=== PATIENT | male | born 1995 | race Caucasian/White ===

== ENCOUNTER 2018-01-31 08:46 | Emergency (ER) | payer OTHER ==
[2018-01-31 08:53] VITALS: BP 135/82; PULSE 85; RESP 18; TEMP 98.3
[2018-01-31] MEDS ORDERED: predniSONE 50 MG TAB PO STA (09:02)
[2018-01-31] MEDS ORDERED: AMOXICILLIN 500 MG CAP PO STA (09:03)
--- NOTE | 2018-01-31 09:05 | ED ---
General Adult HPI - General Chief complaint: ENT Stated complaint: dizziness, sore throat Time Seen by Provider: 01/31/18 08:48 Source: patient, RN notes reviewed Mode of arrival: ambulatory Limitations: no limitations - History of Present Illness Initial comments: This is a 22-year-old male presents emergency Department stating last night he had a mild headache he started his shift took a couple of aspirin and that resolved. Patient states shortly thereafter he started having a sore throat the throat is gotten considerably worse throughout the night. Patient states this morning he noticed he stated some anterior cervical lymphadenopathy. Patient denies any posterior lymphadenopathy. Patient denies any fever or chills. Patient states she did have an episode where he felt a little dizzy. Patient denies any dizziness now. Patient denies any palpitations. Patient denies chest pain patient difficulty breathing shortest breath per patient denies any ear pain. Patient denies any abdominal pain - Related Data Home Medications Medication Instructions Recorded Confirmed Ibuprofen [Advil] 400 mg PO Q8HR PRN 01/31/18 01/31/18 Previous Rx's Medication Instructions Recorded Amoxicillin 500 mg PO Q8H #30 capsule 01/31/18 predniSONE 40 mg PO DAILY #8 tab 01/31/18 Allergies Allergy/AdvReac Type Severity Reaction Status Date / Time No Known Allergies Allergy Verified 01/31/18 09:10 Review of Systems ROS Statement: Those systems with pertinent positive or pertinent negative responses have been documented in the HPI. ROS Other: All systems not noted in ROS Statement are negative. Past Medical History Past Medical History: No Reported History History of Any Multi-Drug Resistant Organisms: None Reported Past Surgical History: No Surgical Hx Reported Past Psychological History: ADD/ADHD Smoking Status: Current every day smoker Past Alcohol Use History: None Reported Past Drug Use History: None Reported General Exam - General Exam Comments Initial Comments: GENERAL: Patient is well-developed and well-nourished. Patient is nontoxic and well- hydrated and is in mild distress. ENT: Neck is soft and supple. Anterior cervical lymphadenopathy. Oropharynx is very erythematous. Moist mucous membranes. Neck has full range of motion without eliciting any pain. EYES: The sclera were anicteric and conjunctiva were pink and moist. Extraocular movements were intact and pupils were equal round and reactive to light. Eyelids were unremarkable. PULMONARY: Unlabored respirations. Good breath sounds bilaterally. No audible rales rhonchi or wheezing was noted. CARDIOVASCULAR: There is a regular rate and rhythm without any murmurs gallops or rubs. ABDOMEN: Soft and nontender with normal bowel sounds. No palpable organomegaly was noted. There is no palpable pulsatile mass. SKIN: Skin is clear with no lesions or rashes and otherwise unremarkable. NEUROLOGIC: Patient is alert and oriented x3. Cranial nerves II through XII are grossly intact. Motor and sensory are also intact. Normal speech, volume and content. Symmetrical smile. MUSCULOSKELETAL: Normal extremities with adequate strength and full range of motion. LYMPHATICS: Anterior cervical lymphadenopathy greater on the right than the left. PSYCHIATRIC: Normal psychiatric evaluation. Limitations: no limitations Course Vital Signs 01/31/18 08:50 Temperature 98.3 F Pulse Rate 85 Respiratory 18 Rate Blood Pressure 135/82 O2 Sat by Pulse 100 Oximetry Disposition Clinical Impression: Strep throat Disposition: HOME SELF-CARE Condition: Good Instructions: Strep Throat (ED) Prescriptions: Amoxicillin 500 mg PO Q8H #30 capsule predniSONE 40 mg PO DAILY #8 tab Is patient prescribed a controlled substance at d/c from ED?: No Referrals: None,Stated [Primary Care Provider] - 1-2 days Time of Disposition: 09:29
== END 2018-01-31 10:06 | disposition home or self-care (01) ==
LOC: EC 08:46
DX: J02.0 Streptococcal pharyngitis (principal); F17.200 Nicotine dependence, unspecified, uncomplicated
CPT/HCPCS: 99283; J7512

== ENCOUNTER 2024-01-11 19:41 | Emergency (ER) | payer OTHER ==
[2024-01-11 19:48] VITALS: RESP 22
--- NOTE | 2024-01-11 20:11 | ED ---
Arrhythmia/Palpitations HPI - General Chief Complaint: Arrhythmia/Palpitations Stated Complaint: Electrocuted Time Seen by Provider: 01/11/24 20:09 Source: patient, RN notes reviewed Mode of arrival: wheelchair Limitations: no limitations - History of Present Illness Initial Comments: 28-year-old male presenting to the ER with chief complaint of electrocution 1 hour ago. Patient states he was clipping wires to an electrical socket in his house when he felt an electric current throughout his body for about 10 seconds. Denies loss of consciousness. Patient states he is having some back and chest tightness and feels "hazy and foggy". - Related Data Home Medications Medication Instructions Recorded Confirmed Ibuprofen [Advil] 400 mg PO Q8HR PRN 01/31/18 01/31/18 Previous Rx's Medication Instructions Recorded Amoxicillin 500 mg PO Q8H #30 capsule 01/31/18 predniSONE [Deltasone] 40 mg PO DAILY #8 tab 01/31/18 Allergies Allergy/AdvReac Type Severity Reaction Status Date / Time No Known Allergies Allergy Verified 01/11/24 19:44 Review of Systems ROS Statement: Those systems with pertinent positive or pertinent negative responses have been documented in the HPI. ROS Other: All systems not noted in ROS Statement are negative. Past Medical History Past Medical History: No Reported History History of Any Multi-Drug Resistant Organisms: None Reported Past Surgical History: No Surgical Hx Reported Past Psychological History: ADD/ADHD Smoking Status: Vaper Past Alcohol Use History: None Reported Past Drug Use History: None Reported General Exam - General Exam Comments Initial Comments: Visual Physical Exam Vital signs reviewed General: Well-appearing, nontoxic, no acute distress. Head: Normocephalic, atraumatic Eyes: PERRLA, EOMI ENT: Airway patent Chest: Nonlabored breathing Skin: No visual rash, normal skin tone Neuro: Alert and oriented 3 Musculoskeletal: No gross abnormalities Limitations: no limitations General appearance: alert, in no apparent distress Head exam: Present: atraumatic, normocephalic, normal inspection Eye exam: Present: normal appearance, PERRL, EOMI. Absent: scleral icterus, conjunctival injection, periorbital swelling ENT exam: Present: normal exam, mucous membranes moist Neck exam: Present: normal inspection. Absent: tenderness, meningismus, lymphadenopathy Respiratory exam: Present: normal lung sounds bilaterally. Absent: respiratory distress, wheezes, rales, rhonchi, stridor Cardiovascular Exam: Present: regular rate, normal rhythm, normal heart sounds. Absent: systolic murmur, diastolic murmur, rubs, gallop, clicks GI/Abdominal exam: Present: soft, normal bowel sounds. Absent: distended, tenderness, guarding, rebound, rigid Neurological exam: Present: alert, oriented X3, CN II-XII intact Psychiatric exam: Present: normal affect, normal mood Skin exam: Present: warm, dry, intact, normal color. Absent: rash Course Vital Signs 01/11/24 01/11/24 19:43 22:00 Temperature 97.7 F 97.8 F Pulse Rate 85 81 Respiratory 22 22 Rate Blood Pressure 142/87 122/85 O2 Sat by Pulse 100 98 Oximetry EKG Findings - EKG Results: EKG: interpreted by LINDA (EKG reveals normal sinus rhythm with no ST changes. Ventricular rate 78 bpm, NM interval 182, QRS duration 110, QT/QTc 346/379) Medical Decision Making - Medical Decision Making I completed the quick note portion of this chart signed to Jerrica Blake PA-C Was pt. sent in by a medical professional or institution ([facility], [employer]PERATOR, urgent care, hospital, or correction...) When possible be specific @ -No Did you speak to anyone other than the patient for history (EMS, parent, family, police, friend...)? What history was obtained from this source @ -No Did you review nursing and triage notes (agree or disagree)? Why? @ -I reviewed and agree with nursing and triage notes Were old charts reviewed (outside hosp., previous admission, EMS record, old EKG, old radiological studies, urgent care reports/EKG's, correction records)? Report findings @ -No old charts were reviewed Differential Diagnosis (chest pain, altered mental status, abdominal pain women, abdominal pain men, vaginal bleeding, weakness, fever, dyspnea, syncope, headache, dizziness, GI bleed, back pain, seizure, CVA, palpatations, mental hea lth, musculoskeletal)? @ -Electrocution, cardiac arrhythmia, rhabdomyolysis, burn EKG interpreted by me (3pts min.). @ -As above X-rays interpreted by me (1pt min.). @ -None done CT interpreted by me (1pt min.). @ -None done U/S interpreted by me (1pt. min.). @ -None done What testing was considered but not performed or refused? (CT, X-rays, U/S, labs)? Why? @ -Lab work not performed as home electrical outlets do not indicate lab work as they are low risk What meds were considered but not given or refused? Why? @ -None Did you discuss the management of the patient with other professionals (pr ofessionals i.e. , PA, BL[employer] P[employer]ER OPERATOR, lab, RT, psych nurse, social work associate, complex care nurse practitioner, teacher, parachute/combatant diver officer, bilingual patient support caseworker)? Give summary @ -No Was smoking cessation discussed for >3mins.? @ -No Was critical care preformed (if so, how long)? @ -No Were there social determinants of health that impacted care today? How? (Homelessness, low income, unemployed, alcoholism, drug addiction, transportation, low edu. Level, literacy, decrease access to med. care, [facility], rehab)? @ -No Was there de-escalation of care discussed even if they declined (Discuss DNR or withdrawal of care, Hospice)? DNR status @ -No What co-morbidities impacted this encounter? (DM, HTN, Smoking, COPD, CAD, Cancer, CVA, ARF, Chemo, Hep., AIDS, mental health diagnosis, sleep apnea, morbid obesity)? @ -None Was patient admitted / discharged? Hospital course, mention meds given and route, prescriptions, significant lab abnormalities, going to OR and other pertinent info. @ -Discharged. This is a 28-year-old male presenting with electrocution 1 hour prior to arrival. States he was cutting wires to and electrical outlet in his home when he felt he was being shocked. Vital signs are within acceptable limits. EKG reveals normal sinus rhythm with no ST changes. Upon reevaluation, patient states symptoms have improved. Appropriate return precautions and follow-up care discussed. Patient is agreeable this plan. Case was discussed with my ED attending Dr. Ambriz. Undiagnosed new problem with uncertain prognosis? @ -No Drug Therapy requiring intensive monitoring for toxicity (Heparin, Nitro, Insulin, Cardizem)? @ -No Were any procedures done? @ -No Diagnosis/symptom? @ -Electrocution Acute, or Chronic, or Acute on Chronic? @ -Acute Uncomplicated (without systemic symptoms) or Complicated (systemic symptoms)? @ -Uncomplicated Side effects of treatment? @ -No Exacerbation, Progression, or Severe Exacerbation? @ -No Poses a threat to life or bodily function? How? (Chest pain, [place], OR, pneumonia, PE, COPD, DKA, ARF, appy, cholecystitis, CVA, Diverticulitis, Homicidal, Suicidal, threat to staff... and all critical care pts) @ -No Disposition Clinical Impression: Electrocution Disposition: HOME SELF-CARE Condition: Stable Additional Instructions: Please return to the Emergency Department if symptoms worsen or any other concerns. Is patient prescribed a controlled substance at d/c from ED?: No Referrals: None,Stated [Primary Care Provider] - 1-2 days Time of Disposition: 22:10
[2024-01-11 22:23] VITALS: BP 122/85; PULSE 81; TEMP 97.8
== END 2024-01-11 22:24 | disposition home or self-care (01) ==
LOC: EC 19:41
DX: T75.4XXA Electrocution, initial encounter (principal); F17.290 Nicotine dependence, other tobacco product, uncomplicated; W86.8XXA Exposure to other electric current, initial encounter
CPT/HCPCS: 93005; 99285